=== PATIENT | female | born 2000 | race African-American/Black ===

== ENCOUNTER 2024-11-08 19:03 | Emergency (ER) | payer BC, SELFPAY ==
[2024-11-08 19:29] VITALS: BP 143/75; PULSE 77; RESP 16; TEMP 36.6; O2SAT 100
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
--- OUTSIDE RECORDS SUMMARY | 2024-11-08 19:54 | XMS_ITS | Referral Summary ---
Author Organization [facility] [address] [facility] Address [address] [place] [address] Care Team Providers Care Buffer Automatic Name Role Phone Solomon Dodd MD Primary Care Provider [phone] Rahul Johnson MD Unavailable Allergies No known active allergies Medications naproxen (NAPROSYN) 500 mg tablet Take 1 tablet (500 mg total) by mouth 2 (two) times a day with meals 20 tablet 11/27/2021 Active cyclobenzaprine (FLEXERIL) 10 mg tablet Take 1 tablet (10 mg total) by mouth 2 (two) times a day as needed for muscle spasms 15 tablet 11/27/2021 Active HYDROcodone-acet aminophen (NORCO) 5-325 mg per tabletIndication s:Pain Take 1 tablet by mouth every 8 (eight) hours as needed for pain 12 tablet 01/17/2022 Active Active Problems Problem Noted Date Diagnosed Date Abscess of right knee 01/13/2022 Social History Tobacco Use Types Packs/Day Years Used Date Smoking Tobacco: Never Alcohol Use Standard Drinks/Week Comments Never 0 (1 standard drink = 0.6 oz pur e alcohol) AUDIT-C Answer Date Recorded Q1: How often do you have a drink containing alc ohol? Never 01/13/2022 Average Number of Drinks Not on file 022 Q3: How often do you have si x or more drinks on one occasion? Never 01/13/2022 Comments No Sex and Gender Information Value Date Recorded Sex Assigned at Not on file Legal Sex Female 10:16 AM CDT Gender Identity Not on file Sexual Orientation Not on file Last Filed Vital Signs Vital Sign Reading Time Taken Comments Blood Pressure 118/76 01/17/2022 3:25 PM CDT Pulse 76 01/17/2022 3:25 PM CDT Temperature 36.8 C (98.2 F) 01/17/2022 3:25 PM CDT Respiratory Rate 16 01/17/2022 3:25 PM CDT Oxygen Saturation 100% 01/17/2022 3:25 PM CDT Inhaled Oxygen Concentration - - Weight 96 kg (211 lb 10.3 oz) 01/13/2022 7:07 PM CDT Height 162.6 cm (5' 4 ) 01/13/2022 7:07 PM CDT Body Mass Index 36.33 01/13/2022 7:07 PM CDT Plan of Treatment Not on file Insurance [facility] [id number] * Guarantor: GABY GRIFFIN Account Type Relation to Patient Date of Phone Billing Address Third Green Party Liability Unverified Proxy [address] [place] [address] [place] Advance Directives For more information, please contact: [phone] * Full Code (Latest Code Status on File) Date Activated Date Inactivated Comments 01/13/2022 10:50 PM 01/17/2022 10:46 PM Care Teams Buffer Automatic Relationship Specialty Start Date End Date Solomon Dodd MD PCP - General 08/29/19 Rahul Johnson MD [address] [facility] [address] [address] Consulting Physician Orthopedic Surgery 01/17/22
--- OUTSIDE RECORDS SUMMARY | 2024-11-08 19:54 | XMS_ITS | Clinical Summary ---
Author Organization [facility] [address] Address [address] [place] [address] Care Team Providers Care Banquet Server On Call Name Role Phone Solomon Dodd MD Primary Care Provider [phone]- [phone] Rahul Johnson MD Unavailable Allergies No known [...] Diagnosed Date Abscess of right knee 01/13/2022 Medical History Medical History Date Comments Eye pain Mouth pain Family History Medical History Relation Name Comments Cancer Maternal Grandmother Relation Name Status Comments Maternal Grandmother Social History Tobacco Use Types Packs/Day Years [...] on file Sexual Orientation Not on file Obstetrics History Last Filed Vital Signs Vital Sign Reading [...] 01/13/2022 7:07 PM CDT Plan of Treatment Health Maintenance Due Date Last Done Comments Cervical Cancer Screening 2000 Depression Screening 2000 Hepatitis C Screening 2000 Regular Well Visit/Exam 18-64 2018 Influenza Vaccine (#1) 2024 06/23/2014 DTaP/Tdap/Td Vaccine (8 - Td or Tdap) 09/04/2029 09/04/2019, 04/19/2014, 05/17/2011, Additional history exists Pneumococcal vaccine <65 Completed 001, 01/07/2001, 2000, Additional history exists Varicella Vaccines Completed 02/08/2010, 04/21/2001 HPV Vaccines Completed 05/23/2017, 04/19/2014 Insurance [facility] * Guarantor: GABY GRIFFIN Account Type Relation to Patient Date of Phone Billing Address Third [employer] Liability Unverified Proxy [address] [place] [address] [place] [address] Advance Directives For more information, please contact: [phone] * Full Code (Latest Code Status on File) Date Activated Date Inactivated Comments 01/13/2022 10:50 PM 01/17/2022 10:46 PM Care Teams Banquet Server On Call Relationship Specialty Start Date End Date Solomon Dodd MD PCP - General 08/29/19 Rahul Johnson MD [address] [facility] [place] [address] Consulting Physician Orthopedic Surgery 01/17/22
[2024-11-08] MEDS: ACETAMINOPHEN 500 MG TABLET 1000 MG PO (20:32)
[2024-11-08] MEDS: ERYTHROMYCIN OPHTH OINTMENT 1 GM TUBE 1 APPLIC RIGHT EYE (21:18)
== END 2024-11-08 21:27 | disposition home or self-care (01) ==
PROVIDERS: Emergency Provider Student in an Organized Health Care Education/Training Program
DX: S05.01XA Injury of conjunctiva and corneal abrasion without foreign body, right eye, initial encounter (principal); T26.61XA Corrosion of cornea and conjunctival sac, right eye, initial encounter; X58.XXXA Exposure to other specified factors, initial encounter
CPT/HCPCS: 96372; 99283; A9270